=== PATIENT | male | born 1985 | race Caucasian/White ===

== ENCOUNTER 2025-10-01 07:42 | Emergency (ER) | payer OTHER ==
[2025-10-01] MEDS ORDERED: Sodium Chloride 0.9% 10 ML Syringe FLUSH PRN (07:45)
[2025-10-01] MEDS: Nitroglycerin 0.4 MG Tab.SL SL ONE (07:57)
[2025-10-01 08:02] LABS: BASOPHILS ABSOLUTE AUTO 0.0 x10-3/uL (0.0-0.3); BASOPHILS PERCENT AUTO 0.5 % (0.3-3.8); EOSINOPHILS ABSOLUTE AUTO 0.1 x10-3/uL (0.0-0.6); EOSINOPHILS PERCENT AUTO 1.6 % (0.1-6.8); LYMPHOCYTES ABSOLUTE AUTO 2.6 x10-3/uL (0.5-4.5); LYMPHOCYTES PERCENT AUTO 36.5 % (15.8-45.3); MEAN PLATELET VOLUME 10.1 fL (6.7-11.0); MONOCYTES ABSOLUTE AUTO 0.6 x10-3/uL (0.0-1.2); MONOCYTES PERCENT AUTO 8.0 % (5.5-15.2); NEUTROPHILS ABSOLUTE AUTO 3.8 x10-3/uL (1.7-6.9); NEUTROPHILS PERCENT AUTO 53.4 % (40.3-71.8); PLATELET COUNT,PLT 90 x10(3)uL (117-477); RED BLOOD CELL COUNT 5.30 x10(6)uL (3.90-5.90); RED CELL DISTRIBUTION WIDTH 12.6 % (12.4-15.0); WHITE BLOOD CELL COUNT,WBC 7.1 x10-3/uL (3.2-10.1)
[2025-10-01 08:16] LABS: A/G RATIO 1.3; ALANINE AMINOTRANSFERASE,ALT 82 U/L (12-36); ASPARTATE AMNIOTRANSFERASE,AST 20 IU/L (5-25); BILIRUBIN TOTAL 0.7 mg/dL (0.1-1.3); BLOOD UREA NITROGEN,BUN 16 mg/dL (7-18); CARBON DIOXIDE,CO2 26 mmol/L (21-32); CHLORIDE,CL 101 mmol/L (100-110); CREATININE 1.0 mg/dL (0.70-1.30); EST CRCL DRUG DOSING (CG) 104.43 mL/min; ESTIMATED GFR 99 mL/min (>60); GLUCOSE RANDOM 144 mg/dL (80-116); POTASSIUM,K 3.6 mmol/L (3.5-5.3); PROTEIN TOTAL,TP 8.1 g/dL (6.0-8.0); SODIUM,NA 138 mmol/L (135-145)
[2025-10-01 08:23] LABS: PRO B-TYPE NATRIUR PEPT,BNPPRO 30.0 pg/mL (<=125)
== END 2025-10-01 08:55 | disposition home or self-care (01) ==
LOC: FB.ED 07:42
DX: I48.91 Unspecified atrial fibrillation (principal); I10 Essential (primary) hypertension; F17.200 Nicotine dependence, unspecified, uncomplicated; Z79.01 Long term (current) use of anticoagulants; Z79.899 Other long term (current) drug therapy
CPT/HCPCS: 36415; 71045; 80053; 83880; 84484; 85025; 93005; 99285; A9270